=== PATIENT | female | born 1995 | race Caucasian/White ===

== ENCOUNTER → 2020-06-21 | Outpatient (CLI) | payer OTHER ==
[~2020-06-21] MED LIST: ADVIL200 M1 PO; B-12 COMPL1000 MCG/1 SUBQ; BIRTH CONTROL PILL PO; CORLANOR5 MG PO; DAILY MULTIPLE1 EACH PO; FLEXERIL PO; LEVO-T50 MCG PO; MECLIZINE HCL25 MG PO; NORTRIPTYLINE H25 M3 PO; TOPROL XL50 MG PO; TYLENOL EXTRA500 MG PO; VITAMIN D350 MC3 PO; ZOLOFT 50 MG TA50 M1 PO
== END ==
LOC: LAB 09:44
PROVIDERS: ATTEND Student in an Organized Health Care Education/Training Program
DX: Z01.812 Encounter for preprocedural laboratory examination (principal); Z20.828 Contact with and (suspected) exposure to other viral communicable diseases

== ENCOUNTER 2020-06-27 10:48 | Outpatient (CLI) | payer OTHER ==
[~2020-06-27] VITALS: Ht 139.7 cm; Wt 86.2 kg
[2020-06-27 11:35] VITALS: BP 118/78
== END 2020-06-27 14:31 | disposition home or self-care (01) ==
LOC: MRI → TBA 10:48 → MRI 10:48 → TBA 10:49 → MRI 11:03
PROVIDERS: ATTEND Specialist
DX: J34.1 Cyst and mucocele of nose and nasal sinus (principal)
CPT/HCPCS: 62110; 62900; 70005